=== PATIENT | female | born 1955 | race Caucasian/White ===

== ENCOUNTER 2018-03-29 17:59 | Emergency (ER) | payer MEDICARE, OTHER ==
[~2018-03-29] VITALS: Ht 167.6 cm; Wt 92.5 kg
[~2018-03-29 17:59] MED LIST: ALBU90I INH; AMOX500; ARTTEAOPSO TOP; AZIT250 PO; CEPH500 PO; CLIN300 PO; CODGUAEL PO; Cyclobenzaprine5 MG PO; DIURETIC PO; HYDACE5 PO; IBUP600; KLONOPIN PO; LIDO5TP TOP; LISI10 PO; LISI20 PO; LISI5 PO; LISINOPRIL PO; NAPR500 PO; OMEP20ER PO; PRED20 PO; PROM25 PO; Percocet 10-321 EACH PO; Percocet 5-3251 EACH PO; Prednisone20 MG PO; RANI150 PO; RXCODACET PO; SULTRIDS PO; UNISOM25 MG PO; Vitamin D2000 UNIT PO; ZESTORETIC 20-121 E1 PO
[2018-03-29 20:05] LABS: Alanine Aminotransfer (ALT/SGP 34 U/L (12-78); Albumin, Blood 3.6 g/dL (3.4-5.0); Alk Phos 90 U/L (50-136); Anion Gap 9 mmol/L (6-16); Aspartate Aminotrans (AST/SGOT 24 U/L (12-37); Bilirubin, Total 0.3 mg/dL (0.1-1.0); Blood Urea Nitrogen 14 mg/dL (8-24); Bun/Creatinine Ratio 16.1 (12.0-20.0); CO2, Blood 26 mmol/L (21-32); Calcium, Blood 8.8 mg/dL (8.5-10.1); Chloride, Blood 107 mmol/L (98-108); Creatinine, Blood 0.87 mg/dL (0.40-1.00); Globulin, Blood 3.6 g/dL (2.2-4.0); Glomerular Filtration Rate >60 (60-); Glucose, Blood 95 mg/dL (70-99); Potassium, Blood 3.5 mmol/L (3.5-5.5); Sodium, Blood 142 mmol/L (136-145); Total Protein, Blood 7.2 g/dL (6.4-8.2)
[2018-03-29 20:15] LABS: BASOPHILS ABSOLUTE AUTO 0.05 K/mm3 (0.00-0.23); BASOPHILS PERCENT AUTO 1 % (0-2); EOSINOPHILS ABSOLUTE AUTO 0.19 K/mm3 (0.00-0.68); EOSINOPHILS PERCENT AUTO 2 % (0-6); Hematocrit 47.7 % (33.0-51.0); Hemoglobin 15.5 g/dL (11.5-16.0); IMMATURE GRAN ABSOLUTE AUTO 0.02 K/mm3 (0.00-0.10); IMMATURE GRAN PERCENT AUTO 0 % (0-1); LYMPHOCYTES PERCENT AUTO 18 % (21-46); MONOCYTES ABSOLUTE AUTO 0.75 K/mm3 (0.16-1.47); MONOCYTES PERCENT AUTO 9 % (4-13); Mean Corpuscular HGB 28.9 pg (26.0-34.0); Mean Corpuscular HGB Conc 32.5 g/dL (31.5-36.5); Mean Corpuscular Volume 89 fL (80-100); Mean Platelet Volume 9.9 fL (9.1-12.4); NEUTROPHILS PERCENT AUTO 71 % (41-73); Platelet Count 329 K/mm3 (150-400); RDW Coefficient Variation 13.7 % (11.7-14.2); RDW Standard Deviation 44.9 fL (35.1-46.3); Red Blood Cell Count 5.37 M/mm3 (3.80-5.20); White Blood Cell Count 8.51 K/mm3 (4.00-11.30)
[2018-03-30] MEDS ORDERED: Flagyl500 MG PO (02:12)
[2018-03-30] MEDS ORDERED: Cipro500 MG PO (02:12)
== END 2018-03-30 02:30 | disposition home or self-care (01) ==
LOC: ER 17:59
PROVIDERS: Emergency Medicine
DX: K52.9 Noninfective gastroenteritis and colitis, unspecified (principal); Z88.5 Allergy status to narcotic agent; Z79.899 Other long term (current) drug therapy; Z79.52 Long term (current) use of systemic steroids; I10 Essential (primary) hypertension; K21.9 Gastro-esophageal reflux disease without esophagitis
CPT/HCPCS: 36415; 74177; 80053; 83690; 85025; 86850; 86900; 86901; 93005; 93010; 99284; Q9967

== ENCOUNTER → 2018-04-08 | Outpatient (CLI) | payer OTHER ==
[~2018-04-08] MED LIST changes: +Cipro500 MG PO; +Flagyl500 MG PO
== END | disposition home or self-care (01) ==
LOC: LAB EV 07:48 → LAB SHORT 07:48
DX: R19.7 Diarrhea, unspecified (principal)
CPT/HCPCS: 87493

== ENCOUNTER → 2019-01-19 | Outpatient (CLI) | payer OTHER ==
[~2019-01-19] MED LIST changes: +VITAMIN D32000 UNIT PO
[2019-01-19 11:01] LABS: BASOPHILS ABSOLUTE AUTO 0.07 K/mm3 (0.00-0.23); BASOPHILS PERCENT AUTO 1 % (0-2); EOSINOPHILS ABSOLUTE AUTO 0.25 K/mm3 (0.00-0.68); EOSINOPHILS PERCENT AUTO 4 % (0-6); Hematocrit 42.8 % (33.0-51.0); Hemoglobin 14.3 g/dL (11.5-16.0); IMMATURE GRAN ABSOLUTE AUTO 0.01 K/mm3 (0.00-0.10); IMMATURE GRAN PERCENT AUTO 0 % (0-1); LYMPHOCYTES ABSOLUTE AUTO 1.21 K/mm3 (0.84-5.20); LYMPHOCYTES PERCENT AUTO 19 % (21-46); MONOCYTES ABSOLUTE AUTO 0.57 K/mm3 (0.16-1.47); MONOCYTES PERCENT AUTO 9 % (4-13); Mean Corpuscular HGB 29.5 pg (26.0-34.0); Mean Corpuscular HGB Conc 33.4 g/dL (31.5-36.5); Mean Corpuscular Volume 88 fL (80-100); Mean Platelet Volume 9.5 fL (9.1-12.4); NEUTROPHILS ABSOLUTE AUTO 4.43 K/mm3 (1.96-9.15); NEUTROPHILS PERCENT AUTO 68 % (41-73); Platelet Count 300 K/mm3 (150-400); RDW Coefficient Variation 13.9 % (11.7-14.2); RDW Standard Deviation 45.1 fL (35.1-46.3); Red Blood Cell Count 4.85 M/mm3 (3.80-5.20); White Blood Cell Count 6.54 K/mm3 (4.00-11.30)
[2019-01-19 11:40] LABS: Anion Gap 6 mmol/L (6-16); Blood Urea Nitrogen 15 mg/dL (8-24); Bun/Creatinine Ratio 15.8 (12.0-20.0); CO2, Blood 32 mmol/L (21-32); Calcium, Blood 8.7 mg/dL (8.5-10.1); Chloride, Blood 100 mmol/L (98-108); Creatinine, Blood 0.95 mg/dL (0.40-1.00); Glomerular Filtration Rate 59 (60-); Glucose, Blood 104 mg/dL (70-99); Potassium, Blood 3.4 mmol/L (3.5-5.5); Sodium, Blood 138 mmol/L (136-145); Thyroid Stimulating Hormone 2.061 uIU/mL (0.360-4.800)
[2019-01-19 11:43] LABS: Troponin I <0.017 ng/mL (0.000-0.040)
== END | disposition home or self-care (01) ==
LOC: LAB EV 10:52 → LAB SHORT 10:52
PROVIDERS: Physician Assistant Surgical
DX: R07.9 Chest pain, unspecified (principal); R53.83 Other fatigue
CPT/HCPCS: 80048; 84443; 84484; 85025

== ENCOUNTER 2019-02-15 01:50 | Inpatient (IN) | payer OTHER ==
[~2019-02-15] VITALS: Ht 165.1 cm; Wt 90.4 kg
[2019-02-15] MEDS ORDERED: AMLO5 PO (02:10)
[2019-02-15] MEDS ORDERED: HYDCHL25 PO (02:10)
[2019-02-15] MEDS ORDERED: METO25ER PO (02:11)
[2019-02-15] MEDS ORDERED: Zestril40 MG PO (02:11)
[2019-02-15 02:17] LABS: BASOPHILS ABSOLUTE AUTO 0.04 K/mm3 (0.00-0.23); BASOPHILS PERCENT AUTO 0 % (0-2); EOSINOPHILS ABSOLUTE AUTO 0.31 K/mm3 (0.00-0.68); EOSINOPHILS PERCENT AUTO 3 % (0-6); Hematocrit 45.7 % (33.0-51.0); Hemoglobin 15.6 g/dL (11.5-16.0); IMMATURE GRAN ABSOLUTE AUTO 0.03 K/mm3 (0.00-0.10); IMMATURE GRAN PERCENT AUTO 0 % (0-1); LYMPHOCYTES ABSOLUTE AUTO 2.92 K/mm3 (0.84-5.20); LYMPHOCYTES PERCENT AUTO 28 % (21-46); MONOCYTES ABSOLUTE AUTO 1.14 K/mm3 (0.16-1.47); MONOCYTES PERCENT AUTO 11 % (4-13); Mean Corpuscular HGB 29.6 pg (26.0-34.0); Mean Corpuscular HGB Conc 34.1 g/dL (31.5-36.5); Mean Corpuscular Volume 87 fL (80-100); Mean Platelet Volume 9.3 fL (9.1-12.4); NEUTROPHILS ABSOLUTE AUTO 5.99 K/mm3 (1.96-9.15); NEUTROPHILS PERCENT AUTO 57 % (41-73); Platelet Count 344 K/mm3 (150-400); RDW Coefficient Variation 13.3 % (11.7-14.2); RDW Standard Deviation 42.7 fL (35.1-46.3); Red Blood Cell Count 5.27 M/mm3 (3.80-5.20); White Blood Cell Count 10.43 K/mm3 (4.00-11.30)
[2019-02-15 02:32] LABS: International Normalized Ratio 0.95; Prothrombin Time Results 10.1 Sec (9.7-11.5)
[2019-02-15 02:35] LABS: Alanine Aminotransfer (ALT/SGP 46 U/L (12-78); Albumin, Blood 3.9 g/dL (3.4-5.0); Alk Phos 104 U/L (50-136); Anion Gap 14 mmol/L (6-16); Aspartate Aminotrans (AST/SGOT 41 U/L (12-37); Bilirubin, Total 0.4 mg/dL (0.1-1.0); Blood Urea Nitrogen 21 mg/dL (8-24); Bun/Creatinine Ratio 25.5 (12.0-20.0); CO2, Blood 27 mmol/L (21-32); Calcium, Blood 10.7 mg/dL (8.5-10.1); Chloride, Blood 96 mmol/L (98-108); Creatinine, Blood 0.82 mg/dL (0.40-1.00); Ethanol (Alcohol), Blood, Med 84 mg/dL; Globulin, Blood 3.9 g/dL (2.2-4.0); Glomerular Filtration Rate >60 (60-); Glucose, Blood 103 mg/dL (70-99); Potassium, Blood 3.1 mmol/L (3.5-5.5); Sodium, Blood 137 mmol/L (136-145); Total Protein, Blood 7.8 g/dL (6.4-8.2)
--- NOTE | 2019-02-15 05:25 | NUR ---
PATIENT ARRIVED TO ICU 13 VIA GURNEY FROM ED WITH DX OF UPPER GI BLEED. PATIENT ABLE TO STAND AND TRANSFER TO ICU BED WITHOUT DIFFICULTY. NO C/O NAUSEA AT THIS TIME. C/O SHARP PAIN TO MID UPPER ABD MORE SO WITH DEEP BREATH. OXYGEN AT 2L/NC DUE TO BIOX 89-90% ON RA. LUNG SOUNDS DECREASED BASES DUE TO PAIN WITH DEEP BREATH. PATIENT PLACED ON ICU MONITORS AND AGREES TO HAVE ASSISTANCE WITH GETTING OUT OF BED.
--- NOTE | 2019-02-15 07:30 | NUR ---
ASSUMED CARE RECIEVED REPORT FROM YANY TEJADA, PT IS ALERT AND ORIENTED, BUT VERY TIRED. CURRENT GTTPS: OCTREOTIDE 25ML/HR, PROTONIX 10ML/HR, AND NS W/ 20 MEQ KCL AT 100ML/HR.
[2019-02-15 08:23] LABS: Hematocrit 48.2 % (33.0-51.0)
--- NOTE | 2019-02-15 11:17 | NUR ---
DR. BELL IN ROOM EVALUATING PT. RECOMMENDS FULL ABDOMINAL ULTRASOUND IN THE AFTERNOON BEFORE EGD.
--- NOTE | 2019-02-15 12:38 | NUR ---
BUSINESS LEADER IN ROOM
[2019-02-15 16:28] LABS: Hematocrit 44.2 % (33.0-51.0); Hemoglobin 14.3 g/dL (11.5-16.0)
--- NOTE | 2019-02-15 16:36 | NUR ---
DR BELL HERE TO PREFORM EGD. CONSENT OBTAINED.
--- NOTE | 2019-02-15 16:41 | NUR ---
ENDOSCOPY DR. BELL AND DAY SURGERY IN ROOM NOW PERFORMING EGD.
--- NOTE | 2019-02-15 17:02 | NUR ---
02/15/19 [address] PATIENT DETERMINED TO BE ASA APPROPRIATE FOR PROPOFOL SEDATION PRIOR TO START OF PROCEDURE BY 3-LEAD EKG REVIEWED WITH PHYSICIAN PRIOR TO START OF PROCEDURE.PATIENT CONFIRMS NPO STATUS AND AGREES WITH SCHEDULED PROCEDURE.History, Chart, Medications and Allergies reviewed before start of procedure.MONITOR INTACT WITH CONTINUOUS PULSE OXIMETRY AND INTERMITTENT BP.O2 VIA N/C INTACT THROUGHOUT SEDATION/PROCEDURE.Bite Block Placed
--- NOTE | 2019-02-15 18:34 | NUR ---
SHIFT SUMMARY PT HAS BEEN ALERT AND ORIENTED ALL SHIFT. PT HAD AN EGD EARLILER TODAY AND IS DOING WELL POST PROCEDURE; NO HEMATOEMESIS, IS VOIDING WELL, AND REPORTS DECREASED PAIN IN CHEST AREA. PT IS ON 2L NC AND IS SATTING > 91% CURRENTLY.
--- NOTE | 2019-02-15 20:00 | NUR ---
ASSUMED CARE OF PT AT 1915. REPORT RECEIVED. PT PRESENTS IN BED. ALERT AND ORIENTED. PLEASANT AND COOPERATIVE WITH CARE AND ASSESSMENT. PT CALLS FOR ASSIST WHEN SHE NEEDS TO GET UP TO RESTROOM. NO COMPLAINTS OF PAIN OR GI DISTRESS. NO ACTIVE S/S BLEEDING AT THIS TIME. WILL REVIEW CHART AND PLAN OF CARE FOR THIS PT.
[2019-02-15 22:15] LABS: Hematocrit 40.8 % (33.0-51.0); Hemoglobin 13.4 g/dL (11.5-16.0)
--- NOTE | 2019-02-15 23:33 | NUR ---
PT HAS BEEN ABLE TO GET UP TO COMMODE WITH MINIMAL HELP EXCEPT FOR MANAGING LINES. PT STEADY ON HER FEET WITH TRANSFERS. VOIDS QS. PT HAS NO S/S BLEEDING. NO S/S ALCOHOL WITHDRAWALS. WILL CONTINUE TO CLOSELY MONITOR.
[2019-02-16 04:02] LABS: Hematocrit 38.6 % (33.0-51.0); Hemoglobin 12.7 g/dL (11.5-16.0); Mean Corpuscular HGB 29.5 pg (26.0-34.0); Mean Corpuscular HGB Conc 32.9 g/dL (31.5-36.5); Mean Platelet Volume 9.5 fL (9.1-12.4); Platelet Count 227 K/mm3 (150-400); RDW Coefficient Variation 13.4 % (11.7-14.2); RDW Standard Deviation 44.4 fL (35.1-46.3); Red Blood Cell Count 4.31 M/mm3 (3.80-5.20); White Blood Cell Count 6.01 K/mm3 (4.00-11.30)
[2019-02-16 04:03] LABS: Mean Corpuscular Volume 90 fL (80-100)
--- NOTE | 2019-02-16 04:16 | NUR ---
PT CONTINUES WITHOUT COMPLAINTS. NO S/S BLEED OR WITHDRAWAL SYMPTOMS. PT REMAINS ALERT AND ORIENTED. COOPERATIVE WITH CARE. WILL CONTINUE TO MONITOR.
[2019-02-16 04:24] LABS: Alanine Aminotransfer (ALT/SGP 36 U/L (12-78); Albumin, Blood 2.9 g/dL (3.4-5.0); Albumin/Globulin Ratio 0.9 (0.8-1.8); Alk Phos 78 U/L (50-136); Anion Gap 2 mmol/L (6-16); Aspartate Aminotrans (AST/SGOT 32 U/L (12-37); Bilirubin, Total 0.7 mg/dL (0.1-1.0); Blood Urea Nitrogen 13 mg/dL (8-24); Bun/Creatinine Ratio 15.7 (12.0-20.0); CO2, Blood 32 mmol/L (21-32); Chloride, Blood 106 mmol/L (98-108); Creatinine, Blood 0.83 mg/dL (0.40-1.00); Globulin, Blood 3.1 g/dL (2.2-4.0); Glomerular Filtration Rate >60 (60-); Glucose, Blood 110 mg/dL (70-99); Sodium, Blood 140 mmol/L (136-145)
[2019-02-16 04:25] LABS: Calcium, Blood 8.3 mg/dL (8.5-10.1)
--- NOTE | 2019-02-16 06:45 | NUR ---
PT HAS BEEN ABLE TO REST THIS NIGHT. NO S/S BLEEDING. AM LABS REVEALS POTASSIUM NOW WNL. PT HAS BEEN INDEPENDENT TO BATHROOM. VOIDS Q.S. NO S/S ETOH WITHDRAWALS TO NOTE. NO CHANGES TO PREVIOUS ASSESSMENTS. WILL CONTINUE TO MONITOR PT, AND WILL REPORT OFF TO ONCOMING RN.
--- NOTE | 2019-02-16 07:30 | NUR ---
ASSUMED CARE RECIEVED REPORT FROM TYLOR PT IS INDEPENDENT AND ALERT/ORIENTED; REQUIRES NO ASSISTANCE AT THIS TIME.
[2019-02-16] MEDS ORDERED: OMEPRAZOLE20 MG PO (11:21)
[2019-02-16] MEDS ORDERED: LORA1 PO ×2 (11:36→12:10)
--- NOTE | 2019-02-16 12:24 | NUR ---
DISCHARGE INSTRUCTIONS: WRITTEN/VERBAL DISCHARGE INSTRUCTIONS GIVEN. ALL QUESTIONS ANSWERED, PT REPORTS UNDERSTANDING OF THESE INSTRUCTIONS. PT TAKEN OUT PER W/C BY GLADIS YOUSSEF. ALL PERSONAL BELONGINGS SENT WITH PT.
== END 2019-02-16 12:24 | disposition home or self-care (01) | DRG 392 ==
LOC: ER 01:50 → ICUW 03:04
PROVIDERS: Emergency Medicine; Internal Medicine; ADMIT Family Medicine
PROC: 0DB58ZX Excision of Esophagus, Via Natural or Artificial Opening Endoscopic, Diagnostic (ICD-10-PCS; principal; 2019-02-16)
DX: K20.9 Esophagitis, unspecified (principal); K22.8 Other specified diseases of esophagus; I10 Essential (primary) hypertension; E87.6 Hypokalemia; G47.00 Insomnia, unspecified; F10.20 Alcohol dependence, uncomplicated; E83.51 Hypocalcemia
CPT/HCPCS: 36415; 71045; 76700; 80053; 83690; 83970; 85014; 85018; 85025; 85027; 85610; 93005; 93010; 96365; 96366; 96367; 96368; 96375; 96376; 99285-25; C9113; G0480; J0171; J0696; J1430; J2250; J2354; J2370; J2405; J2704; J3480; J7030; J7050; J7120